=== PATIENT | male | born 1965 | race Two or more races ===

== ENCOUNTER 2018-12-06 09:50 | Emergency (ER) | payer OTHER ==
[2018-12-06 09:59] VITALS: BP 162/99; PULSE 93; TEMP 98.5; BMI 29.6
[2018-12-06] MEDS ORDERED: KETOROLAC TROMETHAMINE 60 MG/2 ML VIAL ONE (10:20)
[2018-12-06] MEDS ORDERED: traMADol HCL 50 MG TABLET ONE (10:20)
[2018-12-06] MEDS ORDERED: KETOROLAC TROMETHAMINE 60 MG/2 ML VIAL IM ONE (10:21)
[2018-12-06] MEDS ORDERED: traMADol HCL 50 MG TABLET PO ONE (10:21)
[2018-12-06] MEDS ORDERED: DIPHTH,PERTUSS(ACELL),TET 0.5 ML DISP.SYRIN IM ONE ×2 (10:21→10:27)
[2018-12-06] MEDS ORDERED: CEPHALEXIN MONOHYDRATE 500 MG CAPSULE (UD) PO ONE (11:06)
--- NOTE | 2018-12-06 11:20 | PDOC ---
History of Present Illness - General Chief Complaint: Injury Stated Complaint: INJURY TO HAND Time Seen by Provider: 12/06/18 09:57 History Source: Patient - History of Present Illness Occurred: reports: just prior to arrival Upper Extremity Pain Location: left: thumb, 3rd finger, 4th finger, 5th finger Method of Injury: reports: other Past History - Past Medical History Allergies/Adverse Reactions: Allergies Allergy/AdvReac Type Severity Reaction Status Date / Time No Known Allergies Allergy Verified 12/06/18 09:55 Home Medications: Ambulatory Orders Cephalexin [Keflex] 500 mg PO Q6H #27 capsule 12/06/18 Ibuprofen [Motrin -] 800 mg PO Q6H #30 tablet 12/06/18 Tramadol HCl 50 mg PO Q6H #15 tablet MDD 200 mg 12/06/18 COPD: No - Suicide/Smoking/Psychosocial Hx Smoking History: Never smoked Information on smoking cessation initiated: No Hx Alcohol Use: No Drug/Substance Use Hx: No Review of Systems - Review of Systems Musculoskeletal: Yes: Joint Pain, Joint Swelling *Physical Exam - Vital Signs Last Vital Signs Temp Pulse Resp BP Pulse Ox 98.5 F 93 H 16 162/99 97 12/06/18 09:55 12/06/18 09:55 12/06/18 09:55 12/06/18 09:55 12/06/18 09:55 - Physical Exam General Appearance: Yes: Appropriately Dressed, Moderate Distress HEENT: positive: Normal Voice Neck: positive: Supple Respiratory/Chest: negative: Respiratory Distress Extremity: positive: Other (mild swelling w/ ttp to L 3rd-5th fingers w/ superficial contusion to distal phalanx of L 5th digit, FROM and sensation intact to affected fingers) Integumentary: positive: Dry, Warm Neurologic: positive: Fully Oriented, Alert, Normal Mood/Affect Procedures - Splinting Splint Location: Left: Hand (multiple finger fractures) Pre-Proc Neuro Vasc Exam: normal Hand-Made Type: orthoglass Splint Type: Yes: Ulnar Post-Proc Neuro Vasc Exam: normal Brian Bandage: 3", 4" Sling: No Complications: No Post splint xray: No ED Treatment Course - RADIOLOGY Radiology Studies Ordered: Category Date Time Status HAND- LEFT [RAD] Stat Radiology 12/06/18 10:22 Taken - Medications Given in the ED: ED Medications Discontinued Medications Generic Name Dose Route Start Last Admin Trade Name Freq PRN Reason Stop Dose Admin Diphtheria/Tetanus/Acell Pertussis 0.5 ml 12/06/18 10:21 12/06/18 10:33 Boostrix - IM 12/06/18 10:22 0.5 ml .ONCE ONE Administration Ketorolac Tromethamine 60 mg 12/06/18 10:21 12/06/18 10:32 Toradol Injection - IM 12/06/18 10:22 60 mg ONCE ONE Administration Tramadol HCl 50 mg 12/06/18 10:21 12/06/18 10:33 Ultram - PO 12/06/18 10:22 50 mg ONCE ONE Administration Medical Decision Making - Medical Decision Making 12/06/18 11:03 53 yo M, denies any past medical history here with multiple crush injuries to left fingers after having caught in the evacuation machine at work this a.m. Patient works construction. See exam Multiple finger fxs s/p crush injury at work No e/o tendon injury NVI -pain control -Tetanus -no lac to repair but +contusion so will give abx -will place ulnar gutter splint to immobilize digits as per d/w Dr Munguia of [facility] -states pt to f/u with Dr Gutierrez on Sunday *DC/Admit/Observation/Transfer Diagnosis at time of Disposition: Multiple fractures of fingers Qualifiers: Encounter type: initial encounter Fracture type: open Qualified Code(s): S62.609B - Fracture of unspecified phalanx of unspecified finger, initial encounter for open fracture - Discharge Dispostion Disposition: HOME Condition at time of disposition: Improved - Prescriptions Prescriptions: Cephalexin [Keflex] 500 mg PO Q6H #27 capsule Ibuprofen [Motrin -] 800 mg PO Q6H #30 tablet Tramadol HCl 50 mg PO Q6H #15 tablet MDD 200 mg - Referrals Referrals: Segun Gutierrez MD [Staff Physician] - - Patient Instructions Printed Discharge Instructions: DI for Finger Fracture Additional Instructions: You sustained fractures to your left third, fourth and fifth fingers and had an ulnar gutter splint placed to immobilize digits. Please take pain medication as directed. You have a small open wound to 5th digit and was started on antibiotics The ED staff spoke to Dr. Munguia of orthopedic who wants you to be seen by Dr. Gutierrez of orthopedics on Sunday. Please call number provided today to make an appointment. - Post Discharge Activity Forms/Work/School Notes: Back to Work
[2018-12-06] MEDS ORDERED: CEPHALEXIN MONOHYDRATE 500 MG CAPSULE (UD) ONE (11:21)
== END 2018-12-06 11:45 | disposition home or self-care (01) ==
LOC: JERFT 09:50
PROC: 2W3DX1Z Immobilization of Left Lower Arm using Splint (ICD-10-PCS; principal; 2018-12-06)
PROC: 3E0234Z Introduction of Serum, Toxoid and Vaccine into Muscle, Percutaneous Approach (ICD-10-PCS; 2018-12-06)
PROC: 3E0233Z Introduction of Anti-inflammatory into Muscle, Percutaneous Approach (ICD-10-PCS; 2018-12-06)
DX: S67.22XA Crushing injury of left hand, initial encounter (principal); S67.198A Crushing injury of other finger, initial encounter; S62.668A Nondisplaced fracture of distal phalanx of other finger, initial encounter for closed fracture; S62.653A Nondisplaced fracture of middle phalanx of left middle finger, initial encounter for closed fracture; W31.89XA Contact with other specified machinery, initial encounter; Y93.H3 Activity, building and construction; Y92.69 Other specified industrial and construction area as the place of occurrence of the external cause; Y99.0 Civilian activity done for income or pay
CPT/HCPCS: 73130-TC-LT-FY; 90715; 99281-25